=== PATIENT | female | born 1990 | race African-American/Black ===

== ENCOUNTER 2017-07-07 12:25 | Outpatient (CLI) | payer MEDICAID, OTHER ==
[2017-07-07 14:29] VITALS: BP 96/58
--- NOTE | 2017-07-07 16:44 | Ultrasound Report ---
BIOPHYSICAL PROFILE: 0 - breathing movements 2 - movements 2 - posture and tone 2 - Qualitative amniotic fluid volume 6 - TOTAL SCORE OF POSSIBLE 8 Heart Rate (bpm) 142
--- NOTE | 2017-07-07 16:45 | Ultrasound Report ---
Limited OB ultrasound. Findings: A single fetus is identified in cephalic presentation with a normal KRZYSZTOF of 12.8 cm. The heart rate measures 142 beats per minute.
== END 2017-07-07 15:25 | disposition home or self-care (01) ==
LOC: TRG 12:25
PROVIDERS: ATTEND Obstetrics & Gynecology
DX: O48.0 Post-term pregnancy (principal); Z3A.40 40 weeks gestation of pregnancy
CPT/HCPCS: 59025; 76815; 76819

== ENCOUNTER 2017-07-07 20:32 | Inpatient (IN) | payer OTHER ==
[2017-07-07] MEDS ORDERED: ZOFRAN IV PRN (21:22)
[2017-07-07] MEDS ORDERED: STADOL IV PRN (21:22)
[2017-07-07] MEDS ORDERED: SUBLIMAZE IV PRN (21:22)
[2017-07-07] MEDS ORDERED: XYLOCAINE 2% INFILTRATI ONE (21:22)
[2017-07-07] MEDS ORDERED: NARCAN 0.4 MG/1 ML IV PRN (21:22)
[2017-07-07] MEDS ORDERED: ePHEDrine SULFATE IV PRN ×2 (21:22→22:49)
[2017-07-07] MEDS ORDERED: MINERAL OIL PO PRN (21:22)
[2017-07-07] MEDS ORDERED: BRETHINE SUB-Q PRN (21:22)
[2017-07-07] MEDS ORDERED: BRETHINE IVP PRN (21:22)
[2017-07-07] MEDS ORDERED: PHENERGAN PO PRN (21:22)
--- NOTE | 2017-07-07 21:26 | History and Physical Report ---
History of Present Illness Date of examination: 07/07/17 Chief complaint: Leaking fluid History of present illness: Pt is a 27yo AF EDC 07/05/17; EGA 40 3/7 weeks presents to L&D complaining of leaking greenish fluid at 1900 followed by irregular contractions. She received care at [facility] since 12 weeks and course has been unremarkable. records are available and GBS is Negative. Past History Past Medical History: no pertinent history Past Surgical History: no surgical history Family/Genetic History: hypertension Social history: no significant social history, - Obstetrical History Expected Date of Delivery: 07/05/17 Actual Gestation: 40 Week(s) 3 Day(s) : 1 Medications and Allergies Allergies Allergy/AdvReac Type Severity Reaction Status Date / Time No Known Allergies Allergy Verified 07/07/17 21:27 Home Medications Medication Instructions Recorded Confirmed Last Taken Type Ferrous Sulfate [Feosol] 325 mg PO QDAY 07/07/17 07/07/17 07/07/17 History Vit-Fe Fumar-FA [ 1 tab PO QDAY 07/07/17 07/07/17 07/07/17 History Vitamin] Active Meds: Active Medications Butorphanol Tartrate (Stadol) 2 mg IV Q2H PRN PRN Reason: Pain , Severe (7-10) Ephedrine Sulfate (Ephedrine Sulfate) 10 mg IV Q2M PRN PRN Reason: Hypotension Stop: 07/07/17 21:27 Fentanyl (Sublimaze) 100 mcg IV Q2H PRN PRN Reason: Labor Pain Lactated Ringer's (Lactated Ringers) 1,000 mls @ 125 mls/hr IV DIRECT REYNA Oxytocin/Sodium Chloride (Pitocin/Ns 20 Unit/1000ml Drip) 20 units in 1,000 mls @ 125 mls/hr IV DIRECT REYNA Oxytocin/Sodium Chloride (Pitocin/Ns 30 Unit/500ml) 30 units in 500 mls @ 4 mls /hr IV TITR REYNA PRN Reason: Protocol Oxytocin/Sodium Chloride (Pitocin/Ns 30 Unit/500ml) 30 units in 500 mls @ 1 mls /hr IV TITR REYNA; 1 MILLIUNITS/MIN PRN Reason: Protocol Lidocaine (Xylocaine 2%) 20 ml INFILTRATI ONCE ONE Stop: 07/07/17 21:23 Mineral Oil (Mineral Oil) 30 ml PO QHS PRN PRN Reason: Constipation Naloxone HCl (Narcan 0.4 Mg/1 Ml) 0.1 mg IV Q2MIN PRN PRN Reason: Res Rate </= 8 or 02 SAT < 92% Ondansetron HCl (Zofran) 4 mg IV Q8H PRN PRN Reason: Nausea And Vomiting Promethazine HCl (Phenergan) 25 mg PO Q6H PRN PRN Reason: Nausea And Vomiting Terbutaline Sulfate (Brethine) 0.25 mg SUB-Q ONCE PRN PRN Reason: Hyperstimulation/Hypertonicity Stop: 07/07/17 21:23 Review of Systems All systems: negative - Vital Signs Vital signs: Vital Signs Pulse Pulse Ox 241 H 99 07/07/17 20:38 07/07/17 20:38 Temp Pulse Resp BP Pulse Ox 98.4 F 102 H 20 111/66 97 07/07/17 20:43 07/07/17 21:19 07/07/17 20:43 07/07/17 21:08 07/07/17 21:19 - Physical Exam Breasts: Positive: deferred Cardiovascular: Regular rate Lungs: Positive: Clear to auscultation Abdomen: Positive: normal appearance Genitourinary (Female): Positive: normal external genitalia Vagina: Positive: normal moisture Uterus: Positive: enlarged Extremities: Positive: normal - Obstetrical FHR: category 1 Uterine Contraction Monitor Mode: External Cervical Dilatation: 3 Cervical Effacement Percentage: 90 station: -2 Uterine Contraction Pattern: Irregular Uterine Tone Measurement Phase: Contraction Uterine Contraction Intensity: Mild Results Result Diagrams: 07/07/17 21:30 All other labs normal. Assessment and Plan - Patient Problems (1) 40 weeks gestation of Onset Date: 07/08/17 Current Visit: Yes Status: Acute Plan to address problem: A: IUP @ 40 3/7 weeks in labor Meconium fluid P: Admit to L&D for pitocin augmentation of labor Expectant vaginal delivery
[2017-07-07 21:58] LABS: Hemoglobin 13.5 gm/dl (10.1-14.3); Mean Corpuscular HGB Conc 33 % (30-34); Mean Corpuscular Hemoglobin 28 pg (28-32); Mean Corpuscular Volume 84 fl (79-97); Platelet Count 225 K/mm3 (140-440); Red Blood Count 4.91 M/mm3 (3.65-5.03); Red Cell Distribution Width 14.6 % (13.2-15.2)
[2017-07-07] MEDS ORDERED: PITOCin/NS 30 UNIT/500ML 30 UNITS/500 ML BAG IV SCH ×2 (22:00)
[2017-07-07] MEDS ORDERED: PITOCin/NS 20 UNIT/1000ML DRIP 20 UNITS/1,000 ML BAG IV SCH (22:00)
[2017-07-07] MEDS: LACTATED RINGERS 1,000 ML IV SCH ×2 (22:10→23:15)
[2017-07-07] MEDS ORDERED: NARCAN 2 MG/2 ML IV PRN (22:49)
--- NOTE | 2017-07-07 22:49 | Anesthesia Consultation ---
Anesthesia Consult and Med Hx Date of service: 07/07/17 - Airway Anesthetic Teeth Evaluation: Good ROM Head & Neck: Adequate Mental/Hyoid Distance: Adequate Mallampati Class: Class II Intubation Access Assessment: Good - Pulmonary Exam CTA: Yes - Cardiac Exam Cardiac Exam: No Murmur - Pre-Operative Health Status ASA Pre-Surgery Classification: ASA2 Proposed Anesthetic Plan: Epidural - Pulmonary Hx Asthma: No COPD: No Hx Pneumonia: No - Cardiovascular System Hx Hypertension: No - Central Nervous System Hx Seizures: No Hx Psychiatric Problems: No - Endocrine Hx Renal Disease: No Hx End Stage Renal Disease: No Hx Hypothyroidism: No Hx Hyperthyroidism: No - Hematic Hx Anemia: No Hx Sickle Cell Disease: No - Other Systems Hx Alcohol Use: No
[2017-07-07] MEDS ORDERED: fentaNYL-BUPIV 2 MCG/ML-0.125% 200 MCG/100 ML BAG EPIDURAL SCH (23:00)
[2017-07-07] MEDS ORDERED: ePHEDrine SULFATE ONE (23:13)
[2017-07-08] MEDS: LACTATED RINGERS 1,000 ML IV SCH (00:17)
[2017-07-08] MEDS ORDERED: XYLOCAINE 2% INFILTRATI ONE (05:53)
[2017-07-08] MEDS ORDERED: METHERGINE IM ONE ×2 (06:02)
[2017-07-08] MEDS ORDERED: CYTOTEC ONE (06:02)
--- NOTE | 2017-07-08 06:21 | Procedure Note ---
OB Delivery Note - Delivery Date of Delivery: 07/08/17 Surgeon: NADINE AYOUB Estimated blood loss: 300cc - Vaginal Delivery presentation: vertex Delivery position: OA Intrapartum events: febrile- temp >100.3, PROM->1hr before delivery, meconium, prolonged 2nd stage>2.5hr Delivery induction: none Delivery augmentation: pitocin Delivery monitor: external FHT, external uterine Route of delivery: vacuum extraction (3 pulls, 1 pop-off) Indicators for instrumentation: maternal exhaustion Delivery placenta: spontaneous Delivery cord: 3 umbilical vessels Episiotomy: midline Delivery laceration: 2nd degree Delivery repair: vicryl Anesthesia: epidural Delivery comments: was delivered OA over midline episiotomy with the aid of a vacuum - 3 pulls, 1 pop-off, and handed to awaiting Peds/RT due to meconium fluid. - Infant A at 1 minute: 8 at 5 minutes: 9 Gender: Male (2943gms)
[2017-07-08] MEDS ORDERED: MILK OF MAGNESIA PO PRN (06:26)
[2017-07-08] MEDS ORDERED: PHENERGAN PO PRN (06:26)
[2017-07-08] MEDS ORDERED: ZOFRAN IV PRN (06:26)
[2017-07-08] MEDS ORDERED: BENADRYL PO PRN (06:26)
[2017-07-08] MEDS ORDERED: NORCO 5/325 PO PRN (06:26)
[2017-07-08] MEDS ORDERED: LANSINOH TP PRN (06:26)
[2017-07-08] MEDS ORDERED: TYLENOL PO PRN (06:26)
[2017-07-08] MEDS ORDERED: TUCKS PAD TP PRN (06:26)
[2017-07-08] MEDS ORDERED: DULCOLAX PR PRN (06:26)
[2017-07-08] MEDS ORDERED: PHENERGAN PR PRN (06:26)
[2017-07-08] MEDS ORDERED: PITOCin/NS 20 UNIT/1000ML DRIP 20 UNITS/1,000 ML BAG IV SCH (07:00)
[2017-07-08] MEDS ORDERED: SODIUM CHLORIDE FLUSH SYRINGE 10 ML IV PRN (07:00)
[2017-07-08] MEDS ORDERED: SENOKOT S PO SCH (07:00)
[2017-07-08] MEDS: PRENATAL VITAMIN PO SCH (09:41)
[2017-07-08] MEDS: FEOSOL PO SCH ×2 (09:41→22:12)
[2017-07-08] MEDS: MOTRIN PO SCH ×2 (09:41→18:24)
[2017-07-08] MEDS ORDERED: NACL 0.9% 1000 ML 1,000 ML ONE (10:39)
[2017-07-08] MEDS ORDERED: NACL 0.9% 1000 ML IV SCH (11:00)
[2017-07-08] MEDS ORDERED: FIORICET PO PRN (11:15)
[2017-07-08 21:14] LABS: Hemoglobin 9.6 gm/dl (10.1-14.3)
[2017-07-08] MEDS: COLACE PO SCH (22:11)
[2017-07-09] MEDS: MOTRIN PO SCH ×3 (00:06→12:40)
[2017-07-09] MEDS ORDERED: INFED IM ONE (04:06)
--- NOTE | 2017-07-09 04:10 | Progress Note ---
Assessment and Plan A: PP Day #1 Asymptomatic Anemia P: Follow Routine Orders Infed 100mg IM x 1 dose Continue PO FeSO4 D/C Home in the AM RTO in 6 Weeks Subjective - Subjective Date of service: 07/09/17 Patient reports: appetite normal, voiding normally, pain well controlled, flatus , ambulating normally : doing well Objective - Vital Signs Latest vital signs: Vital Signs Temp Pulse Resp BP Pulse Ox 07/09/17 00:00 98.6 F 77 16 121/78 07/08/17 20:00 98.6 F 69 16 102/71 07/08/17 16:55 97.8 F 76 20 90/54 07/08/17 12:14 98.7 F 80 20 104/70 07/08/17 09:10 98.4 F 90 18 101/61 07/08/17 08:41 104 H 102/60 07/08/17 08:26 99/58 07/08/17 08:11 96 H 95/67 07/08/17 07:56 86 103/71 07/08/17 07:41 88 100/70 07/08/17 07:26 93 H 100/67 07/08/17 07:11 98 H 100/67 07/08/17 06:58 113 H 103/70 07/08/17 06:48 116 H 99/54 07/08/17 06:34 109 H 93/57 07/08/17 06:30 100.1 F H 118 H 22 175/109 07/08/17 06:26 124 H 99 07/08/17 06:21 117 H 99 07/08/17 06:16 109 H 98 07/08/17 06:12 110 H 134/57 07/08/17 06:11 110 H 98 07/08/17 06:10 112 H 93/53 07/08/17 06:06 117 H 100 07/08/17 06:01 114 H 97 07/08/17 06:00 109 H 98/51 07/08/17 05:41 100 H 113/79 07/08/17 05:20 72 94 07/08/17 05:15 84 100 07/08/17 05:12 73 84 07/08/17 05:10 82 99 07/08/17 05:09 83 118/56 07/08/17 05:05 100.4 F H 07/08/17 05:00 77 100 07/08/17 04:53 114 H 157/98 07/08/17 04:38 86 114/61 Intake and Output 07/08/17 07/08/17 07/09/17 14:59 22:59 06:59 Intake Total 240 240 300 Output Total 1450 Balance 240 -1210 300 Intake: Oral 240 240 Intake, Free Water 300 Output: Urine 1450 Void 1450 Other: Total, Intake Amount 240 240 Total, Output Amount 650 - Exam Breasts: Present: normal Cardiovascular: Present: Regular rate Lungs: Present: Clear to auscultation, Normal air movement Abdomen: Present: normal appearance, soft, normal bowel sounds Uterus: Present: normal, firm, fundal height below umbilicus Extremities: Present: normal - Labs Labs: Abnormal lab results 07/08/17 Range/Units 20:04 Hgb 9.6 L D (10.1-14.3) gm/dl Hct 28.0 L D (30.3-42.9) %
--- NOTE | 2017-07-09 04:12 | Discharge Summary ---
Providers - Providers Date of Admission: 07/07/17 21:47 Date of discharge: 07/10/17 Attending physician: NADINE CANADA MD Primary care physician: NADINE CANADA MD Hospitalization Reason for admission: rupture of membranes Delivery: vacuum extraction Episiotomy: none Laceration: 2nd degree Other procedures: none complications: none Discharge diagnosis: IUP at term delivered [employer] baby: male Condition at discharge: Good Disposition: DC-01 TO HOME OR SELFCARE Plan - Provider Discharge Summary Activity: routine, no sex for 6 weeks, no heavy lifting 4 weeks, no strenuous exercise Diet: routine Instructions: routine Additional instructions: [] Smoking cessation referral if applicable(refer to patient education folder for contact #) [] Refer to [facility]'s [facility] Booklet Call your doctor immediately for: * Fever > 100.5 * Heavy vaginal bleeding ( >1 pad per hour) * Severe persistent headache * Shortness of breath * Reddened, hot, painful area to leg or breast * Drainage or odor from incision. * Keep incision clean and dry at all times and follow doctor's instructions regarding bathing/showering - Follow up plan Follow up: RADHA CISNEROS CNM [Advanced Practice Nurse] - 6 Weeks
[2017-07-09] MEDS ORDERED: BOOSTRIX IM ONE (06:00)
[2017-07-09] MEDS ORDERED: M-M-R II VACCINE SUB-Q ONE (06:26)
[2017-07-09] MEDS: PRENATAL VITAMIN PO SCH (10:45)
[2017-07-09] MEDS: FEOSOL PO SCH (10:45)
[2017-07-09] MEDS: COLACE PO SCH (10:45)
[2017-07-09 14:24] VITALS: BP 96/61
== END 2017-07-09 16:30 | disposition home or self-care (01) | DRG 775 ==
LOC: TRG 20:32 → LD 21:47 → TRG 21:47 → OB 07-08 09:18
PROVIDERS: ADMIT Obstetrics & Gynecology; ATTEND Obstetrics & Gynecology
PROC: 10D07Z6 Extraction of Products of Conception, Vacuum, Via Natural or Artificial Opening (ICD-10-PCS; principal; 2017-07-08)
PROC: 0W8NXZZ Division of Female Perineum, External Approach (ICD-10-PCS; 2017-07-08)
PROC: 3E0234Z Introduction of Serum, Toxoid and Vaccine into Muscle, Percutaneous Approach (ICD-10-PCS; 2017-07-08)
PROC: 00HU33Z Insertion of Infusion Device into Spinal Canal, Percutaneous Approach (ICD-10-PCS; 2017-07-08)
PROC: 3E0R3CZ (ICD-10-PCS; 2017-07-08)
DX: O77.0 Labor and delivery complicated by meconium in amniotic fluid (principal); O42.92 Full-term premature rupture of membranes, unspecified as to length of time between rupture and onset of labor; O75.81 Maternal exhaustion complicating labor and delivery; O63.1 Prolonged second stage (of labor); O99.03 Anemia complicating the puerperium; D64.9 Anemia, unspecified; O70.1 Second degree perineal laceration during delivery; Z3A.40 40 weeks gestation of pregnancy; Z37.0 Single live birth
CPT/HCPCS: 36415; 85014; 85018; 85027; 86850; 86900; 86901; 88307; 90707; 99211; G0463; J0595; J1750; J2210; J2590; J7030; J7120